=== PATIENT | female | born 1940 | race Caucasian/White ===

== ENCOUNTER → 2017-02-17 | Outpatient (CLI) | payer MEDICARE ==
[~2017-02-17] MED LIST: OYST500T77 PO; VENL75TA91 PO
[2017-02-17 10:23] LABS: HEMATOCRIT 39.6 % (35.0-46.0); MEAN CELL VOLUME 88.8 FL (80.0-100.0); MEAN CORPUSCULAR HEMOGLOBIN 30.1 PG (27.0-34.0); MEAN CORPUSCULAR HGB CONC 33.9 % (32.0-36.0); PLATELET COUNT 216 TH/MM3 (150-450); RED BLOOD COUNT 4.46 MIL/MM3 (4.00-5.30); RED CELL DISTRIBUTION WIDTH 14.4 % (11.6-17.2); WHITE BLOOD COUNT 6.1 TH/MM3 (4.0-11.0)
[2017-02-17 10:30] LABS: HEMO FLAGS AUTO DIFF
[2017-02-17 11:00] LABS: BANDS 8 % (0-6); BASOPHILS 1 % (0-2); EOSINOPHILS 1 % (0-4); NEUTROPHIL # MANUAL DIFF 4.7 TH/MM3 (1.8-7.7); POLYS (SEG NEUTROPHILS) 69 % (16-70); WBC DIFF SAMPLE 100
[2017-02-17 11:01] LABS: PLATELET ESTIMATE SMEAR NORMAL (NORMAL); PLATELET MORPHOLOGY NORMAL (NORMAL); SCAN/DIFF FINAL DIFF MANUAL
[2017-02-17 13:16] LABS: ANION GAP 9 MEQ/L (5-15); AST (GOT) 15 U/L (15-37); BICARBONATE 27.2 MEQ/L (21.0-32.0); BLOOD UREA NITROGEN 16 MG/DL (7-18); CHLORIDE 104 MEQ/L (98-107); GLOMERULAR FILTRATION RATE 81 ML/MIN (>89); GLUCOSE,FASTING 101 MG/DL (74-99); SODIUM (NA) 140 MEQ/L (136-145)
[2017-02-17 13:44] LABS: ALKALINE PHOSPHATASE 84 U/L (45-117); ALT (GPT) 23 U/L (10-53); HDL CHOLESTEROL 96.2 MG/DL (40.0-60.0); LDL CHOLESTEROL 140 MG/DL (0-99); TOTAL BILIRUBIN ADULT 0.3 MG/DL (0.2-1.0)
[2017-02-17 16:20] LABS: BLOOD, URINE NEG (NEG); COMMENT (UR) CULT NOT INDICATED; CULTURE IF INDICATED CULT NOT INDICATED; GLUCOSE,URINE NEG (NEG); KETONE, URINE NEG (NEG); NITRITE,URINE NEG (NEG); PH, URINE 7.5 (5.0-8.5); URINE COLOR YELLOW (YELLW/STRAW)
[2017-02-17 18:14] LABS: HEMOGLOBIN A1a 1.1 %; HEMOGLOBIN A1b 1.9 %; HEMOGLOBIN Ao 84.7 %; HEMOGLOBIN LA1C 2.1 %; HEMOGLOBIN P3 3.8 %
== END ==
LOC: OLAB 09:27
PROVIDERS: ATTEND Internal Medicine
DX: R73.01 Impaired fasting glucose (principal); E78.5 Hyperlipidemia, unspecified; I10 Essential (primary) hypertension; E53.8 Deficiency of other specified B group vitamins
CPT/HCPCS: 36415; 80053; 80061; 81001; 82306; 82607; 83036; 84443; 85007; 85027

== ENCOUNTER → 2017-06-19 | Outpatient (CLI) | payer MEDICARE ==
[~2017-06-19] MED LIST changes: +COQ-30CA2 PO; +EFFE150C PO; +FISH500C PO; +MULT-65 PO; +VITA1000 PO; +VITA10004 PO
[2017-06-19 12:22] LABS: HEMATOCRIT 40.3 % (35.0-46.0); HEMOGLOBIN 13.6 GM/DL (11.6-15.3); MEAN CELL VOLUME 90.1 FL (80.0-100.0); MEAN CORPUSCULAR HEMOGLOBIN 30.4 PG (27.0-34.0); MEAN CORPUSCULAR HGB CONC 33.7 % (32.0-36.0); MEAN PLATELET VOLUME 8.3 FL (7.0-11.0); PLATELET COUNT 229 TH/MM3 (150-450); RED BLOOD COUNT 4.47 MIL/MM3 (4.00-5.30); RED CELL DISTRIBUTION WIDTH 14.1 % (11.6-17.2); WHITE BLOOD COUNT 7.1 TH/MM3 (4.0-11.0)
[2017-06-19 12:32] LABS: INTERNATIONAL NORMALIZED RATIO 1.1 RATIO; PROTHROMBIN TIME - PATIENT 10.7 SEC (9.8-11.6)
[2017-06-19 12:51] LABS: BICARBONATE 29.2 MEQ/L (21.0-32.0); CREATININE 0.58 MG/DL (0.50-1.00)
[2017-06-19 13:02] LABS: AMORPHOUS SEDIMENT, URINE FEW; BILIRUBIN, URINE NEG (NEG); BLOOD, URINE NEG (NEG); GLUCOSE,URINE NEG (NEG); KETONE, URINE NEG (NEG); MUCUS URINE FEW /lpf (OCC); NITRITE,URINE NEG (NEG); SQUAMOUS EPITHELIAL CELL URINE <1 /hpf (0-5); URINE COLOR YELLOW (YELLW/STRAW); URINE LEUKOCYTE ESTERASE NEG (NEG)
== END ==
LOC: CPRE 11:49
PROVIDERS: ATTEND Orthopaedic Surgery
DX: Z01.812 Encounter for preprocedural laboratory examination (principal); M16.12 Unilateral primary osteoarthritis, left hip; M79.609 Pain in unspecified limb
CPT/HCPCS: 80048; 81001; 85027; 85610; 85730

== ENCOUNTER 2017-06-30 07:33 | Inpatient (IN) | payer MEDICARE ==
[~2017-06-30] VITALS: Ht 160 cm; Wt 73.8 kg
[~2017-06-30 07:33] MED LIST changes: -OYST500T77 PO; -VENL75TA91 PO
[2017-06-30] MEDS ORDERED: CHLORHEXIDINE GLUCONATE 2 % 1 PACK (2 CLOTHS) TOPICAL PRN (08:45)
[2017-06-30] MEDS ORDERED: ceFAZolin 2 GM PREMIX 50 ML IV SCH (08:45)
[2017-06-30] MEDS ORDERED: EXPAREL PERI-ARTICULAR INJECTION (TOTAL VOL. 60 ML) P-ARTICULR SCH ×2 (08:45)
[2017-06-30] MEDS ORDERED: CHLORHEXIDINE GLUCONATE 4% SOLN 120 ML BTL TOPICAL SCH (08:45)
[2017-06-30] MEDS ORDERED: LACTATED RINGER'S 1000 ML IV PRN (08:45)
[2017-06-30] MEDS ORDERED: POVIDONE IODINE 5% (ANTISEPSIS KIT) 4 APPLICATIONS EACH NARE PRN (08:45)
[2017-06-30] MEDS ORDERED: GENTAMICIN SULFATE 80 MG/2 ML VIAL ONE (08:45)
[2017-06-30] MEDS ORDERED: SODIUM CHLORID 0.9% 500 ML IV PRN (08:45)
[2017-06-30] MEDS ORDERED: METOPROLOL TARTRATE 25 MG TAB PO PRN (08:45)
[2017-06-30] MEDS ORDERED: ONDANSETRON HCL 4 MG/2 ML VIAL IVP PRN (09:30)
[2017-06-30] MEDS ORDERED: ACETAMINOPHEN/HYDROcodone 325 MG/7.5 MG TAB PO PRN ×2 (09:30)
[2017-06-30] MEDS ORDERED: ZOLPIDEM TARTRATE 5 MG TAB PO PRN (09:30)
[2017-06-30] MEDS ORDERED: TRANEXAMIC ACID INJ 0 MG in SODIUM CHLORIDE 0.9% INJ 100 ML IV SCH (09:30)
[2017-06-30] MEDS ORDERED: Post-op Orders (for Pharmacy) XX ONE (09:30)
[2017-06-30] MEDS ORDERED: BISACODYL 10 MG SUPP RECTAL PRN (09:30)
[2017-06-30] MEDS ORDERED: MAGNESIUM HYDROXIDE SUSP 30 ML CUP PO PRN (09:30)
[2017-06-30] MEDS ORDERED: ECASA81 PO (09:34)
--- NOTE | 2017-06-30 09:35 | HHI.FF ---
Face to Face Verification Diagnosis: (1) Status post total replacement of left hip Physical Therapy Gait training Hip: Total hip, Protocol: Left, Posterior hip precautions, Progress to weight bearing Canvas Knee Splint: When in bed & 2 pillows btw thighs Left LE Weight Bearing: WB as tolerated Left LE Range of Motion: Active ROM Nursing Nursing: Dressing changes (to begin on postop day 7.) Dressing Changes: Daily dressing change (to begin on postop day 7.), Coverderm/ [place] Additional Instructions Steri-Strips are to be removed on postop day 14. I have seen patient Leatha Zavala on 06/30/17. My clinical findings support the need for the requested home health care services because: Ltd mobility - disease progression Limited ability to care for self High risk of falls I certify that my clinical findings support that this patient is homebound because: Post-op weakness Unsteady gait/balance Unsafe to leave home unassisted Kae Vale MD (Charles) Jun 30, 2017 09:35
[2017-06-30] MEDS ORDERED: ACETAMINOPHEN 1000 MG/100 ML 100 ML IV ONE (09:41)
[2017-06-30] MEDS ORDERED: MIDAZOLAM HCL 2 MG/2 ML VIAL ONE (09:41)
[2017-06-30] MEDS ORDERED: FAMOTIDINE 20 MG/2 ML VIAL ONE (09:42)
[2017-06-30] MEDS ORDERED: PROPOFOL 500 MG/50 ML INJ 50 ML ONE (10:06)
[2017-06-30] MEDS ORDERED: MORPHINE SULFATE 4 MG/ML INJ IV PUSH PRN (11:00)
[2017-06-30] MEDS: SODIUM CHLORIDE 0.9% IV SCH ×2 (11:24→13:52)
[2017-06-30] MEDS: TRANEXAMIC ACID IV SCH ×2 (11:24→13:52)
[2017-06-30] MEDS ORDERED: PHENYLEPH/NS 1000 MCG/10 ML SYR IV ONE (12:00)
[2017-06-30] MEDS ORDERED: DEXAMETHASONE SOD PHOS 4 MG/ML VIAL IV ONE (12:00)
[2017-06-30] MEDS ORDERED: ONDANSETRON HCL 4 MG/2 ML VIAL IV ONE (12:00)
[2017-06-30] MEDS ORDERED: PROPOFOL 200 MG/20 ML AMP IV ONE (12:00)
[2017-06-30] MEDS ORDERED: ePHEDrine/NS 25 MG/5 ML SYRINGE IV ONE (12:00)
[2017-06-30] MEDS ORDERED: LACTATED RINGER'S 1000 ML INJ 1,000 ML IV ONE (12:00)
--- NOTE | 2017-06-30 12:38 | PD.OP ---
Operative Report Date of Surgery: Jun 30, 2017 Preoperative Diagnosis: (1) Primary osteoarthritis of left hip Postoperative Diagnosis: (1) Primary osteoarthritis of left hip Procedure: Left total hip arthroplasty with [place] prosthesis Anesthesia: Spinal with supplemental local Surgeon: Ceasar Vale M.D. Information And Data Architect Analyst(s): LYDIA Tobias Operation and Findings: Indications and Findings: This 76-year-old woman has a two-year history of progressive worsening of left hip pain secondary to arthritis. Her ambulation tolerance has diminished since the onset of her pain. She needs to lean on a shopping cart when shopping. She has leg pain, lateral and groin pain and pain at night when turning over. Treatment to date has included analgesics, nonsteroidal anti-inflammatory agents, exercise, intra-articular corticosteroid injections, ambulatory aids and physical therapy she has not responded to conservative measures. Physical findings showed limited range of motion with an antalgic gait and tenderness on motion. X-rays and MRI show significant arthritis in the hip with loss of articular cartilage to bone on bone, the beginnings of possible protrusio, large osteophytes and a [id number] appearance. Operative findings showed severe osteoarthritis in the hip with changes consistent with the x-rays. There are large osteophytes, the beginnings of protrusio and eburnation. There was loss of articular cartilage in deformity of the femoral head. The prosthesis used was a [place] prosthesis. The acetabular component was a Tritanium cluster shell size 50 mm outer diameter with a single screw. The liner was a 36 mm inner diameter, 0 liner of X3 polyethylene. The femoral component was an Accolade 2 stem size 4 x 127. The head was a Biolox Delta head size 36 mm outer diameter with a -5 mm neck length. The patient was brought to the clean air operating suite and a spinal anesthetic was administered. The patient was then positioned into a lateral position with the left hip up on a Helios lateral positioner. The hip and lower extremity were then prepped with alcohol, Hibiclens and ChloraPrep and draped in the usual manner with the hip draped free. Patient received prophylactic antibiotics preoperatively. The patient also received tranexamic acid preoperatively. An appropriate timeout procedure was carried out. An incision was then made from the midportion of the greater trochanter proximally and posteriorly paralleling the fibers of the gluteus anita. The incision was deepened through subcutaneous tissues down to the fascia ruddy and gluteus fascia. The gluteus fascia was then split longitudinally in line with its fibers up to the upper portion of the fascia ruddy. With wound towels in place, the Charnley retractor was inserted. The sciatic nerve was identified and protected throughout the procedure. Dissection was then carried down to the interval between the gluteus minimus and the piriformis. A retractor was inserted. The piriformis and obturator conjoined tendon was released from the greater trochanter and reflected off the capsule. A capsulotomy was made longitudinally along the femoral neck to the base of the femoral neck and then curved distally along the posterior aspect of the greater trochanter. The hip was then internally rotated. Further release of the external rotators was carried out exposing the hip. The hip was then dislocated. The femoral neck was transected at the appropriate level using the oscillating saw placement of appropriate retractors. The femoral head was then removed. Preparation of the femur was initiated with a box osteotome followed by a curet to identify the medullary canal. Broaching was then initiated with the size 0 broach and went and 1 size increments up to size 4. The broach handle was removed. The femoral neck was then trimmed with a calcar planar. Attention was then directed to the acetabulum. Soft tissues were debrided from the acetabulum. Retractors were placed about the acetabulum. Reaming was then initiated with the 44 millimeter reamer and went in 1 mm increments up to the 49 millimeter diameter reamer. A trial reduction with the [] millimeter trial prosthesis was carried out. When this was deemed to be appropriate, the trial prosthesis was removed. The acetabulum was then irrigated and cleaned. The actual prosthesis as noted above was then impacted into place and seated appropriately. A drill hole was then made and sounded. An appropriate size screw was then inserted to stabilize the acetabulum further. The liner as noted above was then inserted into the acetabular shell and impacted into place. Osteophytes were trimmed from the acetabulum. Local anesthetic was then administered throughout the area of the acetabulum and anterior aspect of the femur. The trial neck was then placed on the broach for the above-noted prosthesis. The femoral head trial was placed onto the femoral neck with the external diameter of the head being 36 millimeters and the neck length being -5 millimeters. A trial reduction was then carried out. The stability, leg length and motion were excellent. There was no pistoning. The trial prosthesis was removed. The broach was removed. The femoral component was then impacted into the medullary canal of the femur after irrigation and suctioning. When this was appropriately seated a trial reduction was again carried out with the trial prosthesis. Again, there was no pistoning. The leg length was appropriate. The stability and motion were excellent. The trial prosthesis was then removed. After cleaning and drying the trunion of the femoral component, the above-noted femoral head was impacted onto the trunnion. The hip was then reduced. The stability and mobility were again checked along with leg lengths as noted above. The hip was then positioned appropriately and closure commenced after the remainder of the local anesthetic was injected throughout the hip. The external rotators and capsule were then repaired with #1 Vicryl interrupted transosseous sutures with a Krakw technique to reattach the external rotators and capsule to the posterior aspect of the greater trochanter. The capsule itself on the superior aspect was closed with #1 Vicryl interrupted zsiztc-sk-nynry sutures. The sciatic nerve was again inspected. The fascia ruddy and gluteus fascia were then repaired with #1 Vicryl interrupted [id number] sutures. The subcutaneous tissues were closed with 2-0 Vicryl interrupted simple sutures with buried knots. The skin was closed with a continuous subcuticular closure of 4-0 Monocryl. The wound was then approximated with Steri-Strips. A silver impregnated dressing was applied to the hip. A knee immobilizer was applied to the leg. The patient was then transferred from the operating room to the recovery room in satisfactory condition having tolerated the procedure well. Counts are correct. Specimens: None. Estimated blood loss: 250 mL Kae Vale MD (Charles) Jun 30, 2017 12:38
--- NOTE | 2017-06-30 12:41 | HHI.PR ---
Immediate Post Op Note Procedure Date: Jun 30, 2017 Pre Op Diagnosis: (1) Primary osteoarthritis of left hip Post Op Diagnosis: (1) Primary osteoarthritis of left hip Surgeon: Ceasar Vale M.D. Narcotics And Vice Detective(s): LYDIA Tobias Procedure: Left total hip arthroplasty using Moise prosthesis Findings: There was severe osteoarthritis in the left hip with loss of articular cartilage to bone on bone, osteophytes and eburnation. Complications: None Specimen(s) removed: None Estimated blood loss: 250 mL Anesthesia: Spinal, Local (with Exparel) Drains: None IVF Patient to: PACU Patient Condition: Good Implant/Devices: SEE IMPLANT LOG (if applicable) Date/Time of Procedure: SEE SURGICAL CARE RECORD Kae Vale MD (Charles) Jun 30, 2017 12:41
[2017-06-30] MEDS ORDERED: HYDR-3580 PO (12:43)
[2017-06-30] MEDS ORDERED: DO NOT ADM ANY ANTICOAGULANT DRUGS PRN (12:47)
[2017-06-30] MEDS ORDERED: TRANEXAMIC ACID IV SCH (13:00)
[2017-06-30] MEDS ORDERED: SODIUM CHLORIDE 0.9% IV SCH (13:00)
[2017-06-30] MEDS: LACTATED RINGER'S 1000 ML INJ 1,000 ML IV SCH ×2 (13:00→20:07)
[2017-06-30] MEDS: KETOROLAC TROMETHAMINE 30 MG/ML (IVP) VIAL IVP SCH ×2 (13:39→20:01)
--- NOTE | 2017-06-30 14:28 | RADRPT ---
EXAM DATE/TIME: 06/30/2017 13:05 [facility] COMPARISON: No previous studies available for comparison. INDICATIONS : Post op left total hip replacement. MEDICAL HISTORY : None. SURGICAL HISTORY : None. ENCOUNTER: Initial ACUITY: 1 day PAIN SCORE: 0/10 LOCATION: Left Hip FINDINGS: The patient is status post left hip replacement with prosthesis in good position. No acute fracture o r dislocation is noted. CONCLUSION: 1. Status post left hip replacement with prosthesis in good position. 2. No acute fracture or dislocation. Ronaldo Terry MD on June 30, 2017 at 14:22 Board Certified Radiologist. This report was verified electronically.
--- NOTE | 2017-06-30 14:38 | PD.CONS ---
HPI Service [facility] Consult Requested By Primary Care Physician Non-Staff Diagnoses: Past Family Social History Allergies: Coded Allergies: No Known Allergies (Unverified Allergy, Unknown, 06/30/17) Past Medical History sleep apnea on cpap bronchiectasis- Dr Guadarrama right breast stage I CA s/p lumpectomy- Dr Fitzgerald Osteoarthritis Past Surgical History right breast lumpectomy left hip replacement today Family History sister from pancreatic cancer colon cancer in mom who in her 90s Social History never smoked social drinker no drugs still driving, lives with Physical Exam Vital Signs Vital Signs Date Time Temp Pulse Resp B/P (MAP) Pulse Ox O2 Delivery O2 Flow Rate FiO2 06/30/17 12:51 97.7 75 20 136/71 (92) 95 Nasal Cannula 2 06/30/17 08:45 98.0 79 18 172/87 (115) 97 Physical Exam GENERAL: This is a well-nourished, well-developed patient, in no apparent distress. SKIN: No rashes, ecchymoses or lesions. Cool and dry. HEAD: Atraumatic. Normocephalic. No temporal or scalp tenderness. EYES: Pupils equal round and reactive. Extraocular motions intact. No scleral icterus. No injection or drainage. ENT: Nose without bleeding, purulent drainage or septal hematoma. Throat without erythema, tonsillar hypertrophy or exudate. Uvula midline. Airway patent. NECK: Trachea midline. No JVD or lymphadenopathy. Supple, nontender, no meningeal signs. CARDIOVASCULAR: Regular rate and rhythm without murmurs, gallops, or rubs. RESPIRATORY: Clear to auscultation. Breath sounds equal bilaterally. No wheezes , rales, or rhonchi. GASTROINTESTINAL: Abdomen soft, non-tender, nondistended. No hepato-splenomegaly , or palpable masses. No guarding. MUSCULOSKELETAL: Extremities without clubbing, cyanosis, or edema. No joint tenderness, effusion, or edema noted. No calf tenderness. Negative Homans sign bilaterally. NEUROLOGICAL: Awake and alert. Cranial nerves II through XII intact. Motor and sensory grossly within normal limits. Five out of 5 muscle strength in all muscle groups. Normal speech. Mario Cortez MD Jun 30, 2017 14:38
[2017-06-30 21:00] VITALS: BP 112/59; PULSE 88; RESP 17; TEMP 97.8; O2SAT 94
[2017-07-01] VITALS: BP 124/58; PULSE 87; RESP 18; TEMP 97.5; O2SAT 95
[2017-07-01] MEDS: KETOROLAC TROMETHAMINE 30 MG/ML (IVP) VIAL IVP SCH ×3 (01:08→14:00)
[2017-07-01 04:10] VITALS: BP 133/63; PULSE 93; RESP 18; TEMP 97; O2SAT 96
[2017-07-01 05:38] LABS: HEMATOCRIT 31.5 % (35.0-46.0); HEMOGLOBIN 10.7 GM/DL (11.6-15.3)
[2017-07-01 07:46] VITALS: BP 141/65; PULSE 97; RESP 18; TEMP 99; O2SAT 94
--- NOTE | 2017-07-01 07:58 | PD.ORT.PN ---
Subjective Post Op Day #: 1 Subjective Remarks She is doing well. She has some minor discomfort but no real major pain. The incision site is somewhat uncomfortable. She has been out of bed walking to the bathroom and back without difficulty using a walker. Distance Walked 10 feet, 4 times "because of IV". Objective Vitals Vital Signs Date Time Temp Pulse Resp B/P (MAP) Pulse Ox O2 Delivery O2 Flow Rate FiO2 07/01/17 07:46 99.0 97 18 141/65 (90) 94 07/01/17 04:10 97.0 93 18 133/63 (86) 96 07/01/17 00:00 97.5 87 18 124/58 (80) 95 06/30/17 21:00 97.8 88 17 112/59 (76) 94 06/30/17 17:50 97.7 94 20 132/66 (88) 96 Nasal Cannula 2 06/30/17 17:00 94 20 132/66 (88) 96 Nasal Cannula 2 06/30/17 16:00 95 20 132/66 (88) 96 Nasal Cannula 2 06/30/17 15:00 79 20 131/63 (85) 96 Nasal Cannula 2 06/30/17 14:00 79 20 172/72 (105) 96 Nasal Cannula 2 06/30/17 13:45 78 20 109/63 (78) 95 Nasal Cannula 2 06/30/17 13:30 76 20 157/78 (104) 96 Nasal Cannula 2 06/30/17 13:15 79 20 176/72 (106) 96 Nasal Cannula 2 06/30/17 12:51 97.7 75 20 136/71 (92) 95 Nasal Cannula 2 06/30/17 08:45 98.0 79 18 172/87 (115) 97 I/O 06/30/17 06/30/17 06/30/17 07/01/17 07/01/17 07/01/17 07:00 15:00 23:00 07:00 15:00 23:00 Intake Total 480 ml 240 ml Output Total 250 ml 350 ml Balance -250 ml 130 ml 240 ml Intake Oral 480 ml 240 ml Output Urine Total 350 ml Estimated Blood Loss 250 ml # Voids 3 3 # Bowel Movements 1 0 Result Diagram: 07/01/17 0440 Imaging Last 24 hours Impressions Hip X-Ray 06/30/17 2763 Signed Impressions: Service Date/Time: Friday, June 30, 2017 13:05 - CONCLUSION: 1. Status post left hip replacement with prosthesis in good position. 2. No acute fracture or dislocation. Ronaldo Terry MD Objective Remarks She was resting comfortably, supine in bed with the knee immobilizer in place. The dressing is dry and intact. The neurovascular status is intact. Assessment & Plan Ortho Post Op Day #: 1 Problem List: (1) Primary osteoarthritis of left hip ICD Codes: M16.12 - Unilateral primary osteoarthritis, left hip Status: Resolved (2) Status post total replacement of left hip ICD Codes: Z96.642 - Presence of left artificial hip joint Plan: Continue postop care and PT. Assessment and Plan Condition: Good. Orthopedically stable. DVT prophylaxis: TEDs, aspirin, sequentials. Discharge plans: Home with home health care. An appointment was scheduled through the office. Prescriptions: [place] 7.5/325. Her findings were discussed. Kae Vale MD (Charles) Jul 01, 2017 07:58
--- NOTE | 2017-07-01 08:18 | HHI.DS ---
Discharge Summary Admission Date Jun 30, 2017 at 07:33 Discharge Date: Jul 01, 2017 Admitting Diagnosis Primary osteoarthritis, left hip. Diagnosis: (1) Primary osteoarthritis of left hip Diagnosis: Principal ICD Codes: M16.12 - Unilateral primary osteoarthritis, left hip Status: Resolved (2) Status post total replacement of left hip Diagnosis: Principal ICD Codes: Z96.642 - Presence of left artificial hip joint Procedures Left total hip arthroplasty using Moise prosthesis 04/29/2018. Brief History This is a 76 year old female patient has had progressive increasing pain in her left hip which has been nonresponsive to conservative measures as detailed in the history and physical examination. This has limited her ambulation tolerance and activities of daily living. Physical findings showed significant loss of motion in the hip with tenderness on motion. She had an antalgic gait. X-ray showed severe osteoarthritis in the left hip with loss of articular cartilage to bone on bone, some early evidence of protrusio and significant acetabular osteophytes. CBC/BMP: 07/01/17 0440 Significant Findings Laboratory Tests Test 07/01/17 04:40 Hemoglobin 10.7 GM/DL (11.6-15.3) Hematocrit 31.5 % (35.0-46.0) PE at Discharge She was resting comfortably, supine in bed with the knee immobilizer in place. The dressing is dry and intact. The neurovascular status is intact. Hospital Course The patient was admitted as noted above. The above noted operative procedure was carried out that day. Preoperatively prophylactic antibiotics were administered Ancef according to protocol. These were continued postoperatively. The patient also received tranexamic acid to help with hemostasis according to protocol. In the postanesthesia care unit, mechanical methods of DVT prophylaxis in the form of TODD stockings and sequentials were initiated. Physical therapy was initiated on the day of surgery. According to the therapy notes, she walked 10 feet, 4 times, limited by the IV. On postoperative day #1 physical therapy continued. DVT prophylaxis with aspirin was initiated at this time. The patient continued physical therapy throughout the hospitalization. The distance walked improved throughout the hospitalization. The patient was discharged on postoperative day 1 with the disposition being to home with home health care. An appointment for follow-up was made prior to admission. Pt Condition on Discharge: Good Discharge Disposition: Disch w/ Home Health Serv Discharge Instructions Diet Instructions: As Tolerated, No Restrictions Activities You Can Perform: Full Weight Bearing, Shower Only-No Bath Activities to Avoid: Lifting/Bending, Strenuous Activity, Bathing, Driving Follow up Referrals: Orthopedics with Kae Vale MD (Charles) New Medications: Aspirin DR (Aspirin DR) 81 Mg Tabdr 81 MG PO BID for Prevent Blood Clot for 30 Days, #60 TAB Hydrocodone/Acetaminophen (Hydrocodone-Acetamin 7.5-325) 7.5 Mg-325 Mg Tablet 1 TAB PO Q4H PRN for PAIN SCALE 1 TO 10, #50 TAB Continued Medications: Cholecalciferol (Vitamin D-1000) 1,000 Unit Tab 1000 UNITS PO DAILY for Nutritional Supplement, #1 BOTTLE 0 Refills Coenzyme Q10 (Ubidecarenone) (Coq-10) 30 Mg Cap 1 CAP PO DAILY Cyanocobalamin ER (Vitamin B-12 Cr) 1,000 Mcg Tab 1000 MCG PO DAILY for Nutritional Supplement, #1 BOTTLE 0 Refills Multiple Vitamin (Multi-Vitamin Daily) 1 Tab Tab 1 TAB PO DAILY for Nutritional Supplement, TAB 0 Refills [place]-3 Fatty Acids (Fish Oil) 60 Mg-90 Mg-500 Mg Cap 1 CAP PO DAILY Venlafaxine ER 24 HR (Effexor XR 24 HR) 150 Mg Cap 150 MG PO DAILY, #30 CAP 0 Refills Kae Vale MD (Charles) Jul 01, 2017 08:18
[2017-07-01] MEDS ORDERED: NON-FORMULARY DRUG (Coenzyme Q10 (Ubidecarenone) (Coq-10) 1 CAP) PO SCH (09:00)
[2017-07-01] MEDS ORDERED: CHOLECALCIFEROL (VIT D3) 1000 UNIT TAB PO SCH (09:00)
[2017-07-01] MEDS ORDERED: CYANOCOBALAMIN 1,000 MCG TAB PO SCH (09:00)
[2017-07-01] MEDS ORDERED: VENLAFAXINE HCL XR 75 MG CAP PO SCH (09:00)
[2017-07-01] MEDS ORDERED: MULTIVITAMIN TAB PO SCH (09:00)
[2017-07-01] MEDS ORDERED: NON-FORMULARY DRUG (Omega-3 Fatty Acids (Fish Oil) 1 CAP) PO SCH (09:00)
--- NOTE | 2017-07-01 11:29 | HHI.PR ---
Subjective Remarks overall doing fine. pain is controlled. had a small BM earlier today. no other complaints. Objective Vitals Vital Signs Date Time Temp Pulse Resp B/P (MAP) Pulse Ox O2 Delivery O2 Flow Rate FiO2 07/01/17 07:46 99.0 97 18 141/65 (90) 94 07/01/17 04:10 97.0 93 18 133/63 (86) 96 07/01/17 00:00 97.5 87 18 124/58 (80) 95 06/30/17 21:00 97.8 88 17 112/59 (76) 94 06/30/17 17:50 97.7 94 20 132/66 (88) 96 Nasal Cannula 2 06/30/17 17:00 94 20 132/66 (88) 96 Nasal Cannula 2 06/30/17 16:00 95 20 132/66 (88) 96 Nasal Cannula 2 06/30/17 15:00 79 20 131/63 (85) 96 Nasal Cannula 2 06/30/17 14:00 79 20 172/72 (105) 96 Nasal Cannula 2 06/30/17 13:45 78 20 109/63 (78) 95 Nasal Cannula 2 06/30/17 13:30 76 20 157/78 (104) 96 Nasal Cannula 2 06/30/17 13:15 79 20 176/72 (106) 96 Nasal Cannula 2 06/30/17 12:51 97.7 75 20 136/71 (92) 95 Nasal Cannula 2 I/O 06/30/17 06/30/17 06/30/17 07/01/17 07/01/17 07/01/17 07:00 15:00 23:00 07:00 15:00 23:00 Intake Total 480 ml 240 ml Output Total 250 ml 350 ml Balance -250 ml 130 ml 240 ml Intake Oral 480 ml 240 ml Output Urine Total 350 ml Estimated Blood Loss 250 ml # Voids 3 3 # Bowel Movements 1 0 Result Diagram: 07/01/17 0440 Imaging Last Impressions Hip X-Ray 06/30/17926 Signed Impressions: Service Date/Time: Friday, June 30, 2017 13:05 - CONCLUSION: 1. Status post left hip replacement with prosthesis in good position. 2. No acute fracture or dislocation. Ronaldo Terry MD Objective Remarks GENERAL: This is a well-nourished, well-developed patient, in no apparent distress. CARDIOVASCULAR: Regular rate and regular rhythm without murmurs, gallops, or rubs. RESPIRATORY: Clear to auscultation. Breath sounds equal bilaterally. No wheezes , rales, or rhonchi. GASTROINTESTINAL: Abdomen soft, non-tender, nondistended. Normal, active bowel sounds MUSCULOSKELETAL: Extremities without clubbing, cyanosis, or edema. NEURO: Alert & Oriented x4 to person, place, time, situation. Moves all ext x4 Medications and IVs Inpatient Medications Acetaminophen/ Hydrocodone Bitart ([place] 7.5-325 Mg) 2 tab Q4H PRN PO PAIN SCALE 5 TO 10; Start 06/30/17 at 09:30 Aspirin (Ecotrin Ec) 81 mg BID PO ; Start 07/01/17 at 12:00 Bisacodyl (Dulcolax Supp) 10 mg DAILY PRN RECTAL MILD CONSTIPATION; Start at 09:30 Bupivacaine Liposome 20 ml/ Sodium Chloride 60 ml @ 120 mls/hr ONCE P-ARTICULR Last administered on 06/30/17at 11:25; Start 06/30/17 at 08:45; Stop 07/01/17 at 08:44; Status DC Cefazolin Sodium 1000 mg/Sodium Chloride 100 ml @ 200 mls/hr Q6H IV Last administered on 07/01/17at 04:20; Start 06/30/17 at 17:00; Stop 07/01/17 at 05:29; Status DC Cefazolin Sodium/ Dextrose 50 ml @ 100 mls/hr DAYCARE ASSISTANT IV Last administered on 06/30/17at 11:22; Start 06/30/17 at 08:45; Stop 07/03/17 at 08:44 Chlorhexidine Gluconate (Chlorhexidine 2% Cloth) 3 pack DAYCARE ASSISTANT PRN TOPICAL SEE LABEL COMMENTS Last administered on 06/30/17at 08:05; Start 06/30/17 at 08:45; Stop 07/03/17 at 08:44 Chlorhexidine Gluconate (Hibiclens 4% Top Soln) 1 applic ONCE TOPICAL Last administered on 06/30/17at 08:56; Start 06/30/17 at 08:45; Stop 07/03/17 at 08:44 Cholecalciferol (Vitamin D3) 1,000 units DAILY PO Last administered on at 08:43; Start 07/01/17 at 09:00 Cyanocobalamin (Vitamin B12) 1,000 mcg DAILY PO Last administered on 07/01/17at 08:43; Start 07/01/17 at 09:00 Docusate Sodium (Colace) 100 mg BID PO ; Start 07/01/17 at 21:00 Ketorolac Tromethamine (Toradol Inj) 15 mg Q6H IVP Last administered on at 08:43; Start 06/30/17 at 14:00; Stop 07/02/17 at 08:01 Lactated Ringer's 1,000 ml @ 80 mls/hr [id number] IV Last administered on at 20:07; Start 06/30/17 at 11:00 Magnesium Hydroxide (Milk Of Magnesia Liq) 30 ml DAILY PRN PO MEDIUM CONSTIPATION; Start 06/30/17 at 09:30 Metoprolol Tartrate (Lopressor) 25 mg DAYCARE ASSISTANT PRN PO SEE LABEL COMMENTS; Start 06/30/17 at 08:45; Stop 07/03/17 at 08:44 Miscellaneous Information ALL NURSING DEPARTME... UNSCH PRN .XX SEE LABEL COMMENTS; Start 06/30/17 at 12:47; Stop 07/01/17 at 12:46 Miscellaneous Information (Post-op Orders (for Pharmacy)) STAT ONCE XX ; Start 06/30/17 at 09:30; Stop 06/30/17 at 10:54; Status DC Morphine Sulfate (Morphine Inj) 4 mg Q3H PRN IV PUSH BREAKTHROUGH PAIN; Start 06/30/17 at 11:00 Multivitamins (Theragran) 1 tab DAILY PO Last administered on 07/01/17at 08:43; Start 07/01/17 at 09:00 Ondansetron HCl (Zofran Inj) 4 mg Q6H PRN IVP NAUSEA OR VOMITING; Start at 09:30 Povidone Iodine (Betadine 5% Antisepsis Kit) 1 applic DAYCARE ASSISTANT PRN EACH NARE SEE LABEL COMMENTS Last administered on 06/30/17at 08:56; Start 06/30/17 at 08:45; Stop 07/03/17 at 08:44 Sodium Chloride 500 ml @ 30 mls/hr [id number] PRN IV SEE LABEL COMMENTS; Start 06/30/17 at 08:45; Stop 06/30/17 at 13:24; Status DC Tranexamic Acid 738 mg/Sodium Chloride 107.38 ml @ 200 mls/ hr ONCE IV ; Start 06/30/17 at 13:00; Stop 06/30/17 at 14:00; Status DC Venlafaxine HCl (Effexor Xr) 150 mg DAILY PO Last administered on 07/01/17at 08: 43; Start 07/01/17 at 09:00 Zolpidem Tartrate (Ambien) 5 mg HS PRN PO SLEEP; Start 06/30/17 at 09:30 A/P Assessment and Plan A/P - osteoarthritis- s/p left total hip replacement continue pain control- management per ortho. -[id number]; will monitor. -history of breast cancer- f/u as outpatient. -DVT prophylaxis with aspirin-per ortho. Discharge Planning per ortho. Paul Escobar MD Jul 01, 2017 11:29
[2017-07-01 12:00] VITALS: BP 139/64; PULSE 92; RESP 18; TEMP 99; O2SAT 97
[2017-07-01] MEDS ORDERED: ASPIRIN EC 81 MG TABEC PO SCH (12:00)
[2017-07-01] MEDS: LACTATED RINGER'S 1000 ML INJ 1,000 ML IV SCH (12:00)
[2017-07-01] MEDS ORDERED: DOCUSATE SODIUM 100 MG CAP PO SCH (21:00)
== END 2017-07-01 14:29 | disposition home health service (06) | DRG 470 ==
LOC: HSDI 07:33 → N06B 18:04
PROVIDERS: ADMIT Orthopaedic Surgery; ATTEND Orthopaedic Surgery
PROC: 0SRB02A Replacement of Left Hip Joint with Metal on Polyethylene Synthetic Substitute, Uncemented, Open Approach (ICD-10-PCS; principal; 2017-06-30 10:05)
DX: M16.12 Unilateral primary osteoarthritis, left hip (principal); D64.9 Anemia, unspecified; F32.9 Major depressive disorder, single episode, unspecified; J47.9 Bronchiectasis, uncomplicated; G47.30 Sleep apnea, unspecified; Z85.3 Personal history of malignant neoplasm of breast
CPT/HCPCS: 73502; 85014; 85018; 86850; 86900; 86901; 94150; C1776; J0131; J0690; J1100; J1580; J1885; J2250; J2370; J2405; J3010; J7120

== ENCOUNTER → 2017-08-05 | Outpatient (CLI) | payer MEDICARE ==
[~2017-08-05] MED LIST changes: +ECASA81 PO; +HYDR-3580 PO
[2017-08-05 11:56] LABS: AUTOMATED NEUTROPHIL # 5.2 TH/MM3 (1.8-7.7); BASOPHIL % 0.4 % (0.0-2.0); EOSINOPHIL % 0.4 % (0.0-4.0); HEMATOCRIT 38.1 % (35.0-46.0); HEMOGLOBIN 12.2 GM/DL (11.6-15.3); LYMPH % 12.5 % (9.0-44.0); LYMPHOCYTE # 0.8 TH/MM3 (1.0-4.8); MEAN CELL VOLUME 90.5 FL (80.0-100.0); MEAN PLATELET VOLUME 8.1 FL (7.0-11.0); MONOCYTE # 0.5 TH/MM3 (0-0.9); NEUT % 79.7 % (16.0-70.0); PLATELET COUNT 270 TH/MM3 (150-450); RED BLOOD COUNT 4.21 MIL/MM3 (4.00-5.30); RED CELL DISTRIBUTION WIDTH 14.7 % (11.6-17.2); WHITE BLOOD COUNT 6.5 TH/MM3 (4.0-11.0)
[2017-08-05 14:11] LABS: ALBUMIN 3.5 GM/DL (3.4-5.0); AST (GOT) 10 U/L (15-37); BICARBONATE 26.7 MEQ/L (21.0-32.0); BLOOD UREA NITROGEN 13 MG/DL (7-18); CALCIUM 8.5 MG/DL (8.5-10.1); CHLORIDE 107 MEQ/L (98-107); CHOLESTEROL 204 MG/DL (120-200); CREATININE 0.83 MG/DL (0.50-1.00); GLOMERULAR FILTRATION RATE 66 ML/MIN (>89); GLUCOSE,RANDOM 101 MG/DL (74-106); SODIUM (NA) 143 MEQ/L (136-145)
[2017-08-05 14:24] LABS: ALKALINE PHOSPHATASE 120 U/L (45-117); ALT (GPT) 18 U/L (10-53); CHOLESTEROL/ HDL RATIO 2.56 RATIO; HDL CHOLESTEROL 79.4 MG/DL (40.0-60.0); LDL CHOLESTEROL 108 MG/DL (0-99); TOTAL BILIRUBIN ADULT 0.3 MG/DL (0.2-1.0); TOTAL PROTEIN 7.4 GM/DL (6.4-8.2); TRIGLYCERIDES 81 MG/DL (42-150)
[2017-08-05 16:51] LABS: HEMOGLOBIN A1C 5.5 % (4.3-6.0)
[2017-08-05 18:17] LABS: BILIRUBIN, URINE NEG (NEG); BLOOD, URINE NEG (NEG); GLUCOSE,URINE NEG (NEG); HYALINE CAST, URINE 1 /lpf (RARE); KETONE, URINE NEG (NEG); MUCUS URINE FEW /lpf (OCC); NITRITE,URINE NEG (NEG); PH, URINE 6.5 (5.0-8.5); URINE COLOR YELLOW (YELLW/STRAW); URINE LEUKOCYTE ESTERASE MOD (NEG)
== END ==
LOC: OLAB 10:40
DX: R73.01 Impaired fasting glucose (principal); E78.5 Hyperlipidemia, unspecified; I10 Essential (primary) hypertension
CPT/HCPCS: 36415; 80053; 80061; 81001; 83036; 84443; 85025

== ENCOUNTER → 2017-08-12 | Outpatient (CLI) | payer MEDICARE ==
[2017-08-12 10:16] LABS: HEMATOCRIT 38.6 % (35.0-46.0); HEMOGLOBIN 12.6 GM/DL (11.6-15.3); MEAN CELL VOLUME 88.9 FL (80.0-100.0); MEAN CORPUSCULAR HEMOGLOBIN 28.9 PG (27.0-34.0); MEAN CORPUSCULAR HGB CONC 32.5 % (32.0-36.0); MEAN PLATELET VOLUME 8.7 FL (7.0-11.0); PLATELET COUNT 260 TH/MM3 (150-450); RED BLOOD COUNT 4.34 MIL/MM3 (4.00-5.30); RED CELL DISTRIBUTION WIDTH 15.4 % (11.6-17.2); WHITE BLOOD COUNT 7.1 TH/MM3 (4.0-11.0)
[2017-08-12 14:02] LABS: BICARBONATE 24.5 MEQ/L (21.0-32.0); CALCIUM 9.1 MG/DL (8.5-10.1); CREATININE 0.94 MG/DL (0.50-1.00)
== END ==
LOC: OLAB 09:56
PROVIDERS: ATTEND Internal Medicine Cardiovascular Disease
DX: R07.89 Other chest pain (principal); R06.02 Shortness of breath; I34.0 Nonrheumatic mitral (valve) insufficiency; J98.4 Other disorders of lung
CPT/HCPCS: 36415; 80048; 83880; 85027; 85379

== ENCOUNTER → 2017-10-13 | Outpatient (CLI) | payer MEDICARE ==
--- NOTE | 2017-10-16 08:26 | RSPPFT ---
DATE OF PROCEDURE: 10/13/17 COMMENTS: VOLUMES DYNAMIC: FVC and FEV1 normal. STATIC: FRC, RV and TLC normal. FLOWS: FEV1% mildly reduced; FEF 25-75 moderately reduced. DIFFUSION: Moderately reduced. FLOW VOLUME LOOP: Pattern of variable intrathoracic airways obstruction. IMPRESSION: Mild obstructive ventilatory defect with no significant hyperinflation and a mild to moderate reduction in diffusion. No significant improvement post-bronchodilator noted..
== END ==
LOC: HRSP 09:36
PROVIDERS: ATTEND Internal Medicine
DX: J44.9 Chronic obstructive pulmonary disease, unspecified (principal)
CPT/HCPCS: 94060; 94618; 94726; 94729